=== PATIENT | male | born 1945 | race Caucasian/White ===

== ENCOUNTER 2024-03-12 09:50 | Outpatient (CLI) | payer OTHER, SELFPAY | END 2024-03-12 09:51 | disposition home or self-care (01) | PROVIDERS: PCP Family Medicine; Visit Provider Family Medicine | DX: D64.9 Anemia, unspecified (principal); I10 Essential (primary) hypertension; Z13.220 Encounter for screening for lipoid disorders; Z13.21 Encounter for screening for nutritional disorder; Z13.29 Encounter for screening for other suspected endocrine disorder | CPT/HCPCS: 80048; 80061; 82607; 84443 ==

== ENCOUNTER 2025-03-17 10:51 | Outpatient (CLI) | payer MEDICARE, SELFPAY | END 2025-03-17 10:52 | disposition home or self-care (01) | PROVIDERS: PCP Family Medicine; Visit Provider Family Medicine | DX: I10 Essential (primary) hypertension (principal); Z13.6 Encounter for screening for cardiovascular disorders | CPT/HCPCS: 80048; 80061 ==

== ENCOUNTER 2025-05-30 17:13 | Emergency (ER) | payer MEDICARE, SELFPAY ==
--- OUTSIDE RECORDS SUMMARY | 2025-05-08 08:52 | XMS_ITS | Encounter Summary ---
Author Organization [facility] Address [address] [place] [id number] Care Team Providers Care Remote Sensing Analyst Name Role Phone Elsewhere, Pcp Primary Care Provider Unavailabl e Encounter Details Date Type Department Care Team (Latest Contact Info) Description 05/08/2025 8:52 AM CDT - 05/08/2025 11:59 PM CDT Hospital Encounter Department of Laboratory Medicine and Pathology, [facility] in [place], [place] [address] [place] [phone] Yanci Domingo APRN, C.N.P., M.S.N. [address] [place] [phone] Atrial Fibrillation Other Persistent (HCC) Discharge Disposition: Home or Self Care Social History Tobacco Use Types Packs/Day Years Used Date Smoking Tobacco: Former Cigarettes Smokeless Tobacco: Never Alcohol Use Standard Drinks/Week Comments Yes 2 (1 standard drink = 0.6 oz pur e alcohol) [facility] Utilities Answer Date Recorded In the past 12 months has e electric, gas, oil, or water company threatened to shut off services in your home? No 05/04/2025 Humiliation, Afraid, Rape, and Kick questionnair e Answer Date Recorded Within the last year, have y ou been afraid of your partner or ex-partner? No 02/17/2023 Within the last year, have y ou been humiliated or emotionally abused in other ways by your partner or ex-partner? No Within the last year, have y ou been kicked, hit, slapped, or otherwise physically hurt by your partner or ex-partner? No 02/17/2023 Within the last year, have y ou been raped or forced to have any kind of sexual activity by your partner or ex-partner? No 02/17/2023 Hunger Vital Sign Answer Date Recorded Within the past 12 months, y ou worried that your food would run out before you got the money to buy more. Never true 05/04/20 25 Within the past 12 months, t he food you bought just didn't last and you didn't have money to get more. Never true 05/04/2025 PRAPARE - Transportation Answer Date Re corded In the past 12 months, has l ack of transportation kept you from medical appointments or from getting medications? No 06/2025 In the past 12 months, has l ack of transportation kept you from meetings, work, or from getting things needed for daily living? No 05/04/2025 Housing Stability Answer Date Recorded What is your living situation today? I have a [facility] place to live 05/04/2025 Education Answer Date Recorded What is the highest level of school you have completed or the highest degree you have received? 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 amoxicillin (AMOXIL) 500 mg capsule Take 2,000 mg by mouth as directed. Prior to Dental Work 03/10/2020 dofetilide (Tikosyn) 125 mcg capsule Take 1 capsule (125 mcg total) by mouth every 12 (twelve) hours. 180 capsule 1 05/08/2025 furosemide (Lasix) 20 mg tablet Take 20 mg by mouth every morning. 01/07/2025 losartan (COZAAR) 100 mg tablet Take 100 mg by mouth daily. 04/20/2021 metoprolol succinate (TOPROL-XL) 100 mg 24 hr tablet TAKE 2 TABLETS BY MOUTH DAILY. DO NOT CRUSH. 180 tablet 02/15/2024 multivitamin tablet Take 1 tablet by mouth daily. 09/15/2014 multivitamin/iron /folic acid (multivitamin-min erals) tablet Take 1 tablet by mouth daily. omeprazole (PriLOSEC) [address] capsule Take 20 mg by mouth every morning before breakfast. rosuvastatin (Crestor) 10 mg tablet Take 10 mg by mouth daily. warfarin (COUMADIN) 6 mg tablet Take 6mg daily until INR recheck on 12/08/22 12/05/2022 documented as of this encounter Plan of Treatment Not on file documented as of this encounter Procedures Procedure Name Priority Date/Time Associated Diagnosis Comments POTASSIUM, S/P Routine 05/08/2025 9:11 AM CDT Atrial Fibrillation Other Persistent (HCC) MAGNESIUM, S Routine 05/08/2025 9:11 AM CDT Atrial Fibrillation Other Persistent (HCC) CREATININE WITH EGFR, S/P Routine 05/08/2025 9:11 AM CDT Atrial Fibrillation Other Persistent (HCC) documented in this encounter Results * Creatinine with Estimated GFR (05/08/2025 9:11 AM CDT) Creatinine 1.23 0.74 - 1.35 mg/dL 05/08/2025 10:08 AM CDT DTL Estimated GFR (eGFR) 60 >=60 mL/min/BSA 05/08/2025 10:08 AM CDT DTL Comment: Estimated GFR calculated using the 2020 CKD_EPI creatinine equation. Blood (Blood, Venous) 05/08/2025 9:11 AM CDT 05/08/2025 9:51 AM CDT Yanci Domingo APRN, C.N.P., M.S.N. LAB BLOOD ADD -ON Final Result [facility] [place] [address] [place], [place] [address] 200 [place] [address] * Potassium (05/08/2025 9:11 AM CDT) Potassium, S 4.5 3.6 - 5.2 mmol/L 05/08/2025 10:08 AM CDT DTL Blood (Blood, Venous) 05/08/2025 9:11 AM CDT 05/08/2025 9:51 AM CDT Yanci Domingo APRN, C.N.P., M.S.N. LAB BLOOD ADD -ON Final Result [facility] [place] [address] [place], [place] [address] 200 [place] [address] * Magnesium (05/08/2025 9:11 AM CDT) Pathologist [facility] [place] Magnesium, S 2.1 1.7 - 2.3 mg/dL 05/08/2025 10:08 AM CDT DTL Blood (Blood, Venous) 05/08/2025 9:11 AM CDT 05/08/2025 9:51 AM CDT Yanci Domingo APRN, C.N.P., M.S.N. LAB BLOOD ADD -ON Final Result [facility] [place] [address] [place], [place] [address] 200 [place] [address] documented in this encounter Visit Diagnoses Diagnosis Atrial Fibrillation Other Persistent (HCC) documented in this encounter Care Teams Remote Sensing Analyst Relationship Specialty Start Date End Date Elsewhere, Pcp PCP - General Internal Medicine 11/15/21 documented as of this encounter
--- OUTSIDE RECORDS SUMMARY | 2025-05-08 10:00 | XMS_ITS | Encounter Summary ---
Author Organization [facility] Address [address] [place] [phone] Care Team Providers Care Corporate Quality Assurance Manager Name Role Phone Elsewhere, Pcp Primary Care Provider Unavailabl e Reason for Referral * Cardiovascular-Diagnostic (Routine) - Authorized Specialty Diagnoses / Procedures Referred By Contac t Referred To Contact Diagnoses Atrial Fibrillation Other Persistent (HCC) Procedures Echo Transthoracic (TTE) Yanci Domingo APRN C.N.P., M.S.N. 200 [place] [phone] Phone: tel: fax: [facility] Referral ID Status Reason Start Date Expiration Date V isits Requested Visits Authorized [id number] Authorized 05/08/2025 08/08/2026 1 1 * Outpatient (Routine) - Authorized Specialty Diagnoses / Procedures Referred By Contac t Referred To Contact Diagnoses Atrial Fibrillation Other Persistent (HCC) Procedures ECG 12 Lead NH EKG 12 LEAD W I&R Yanci Domingo APRN, C.N.P., M.S.N. [address] [place] [phone] Phone: tel: fax: [facility] Referral ID Status Reason Start Date Expiration Date V isits Requested Visits Authorized [id number] Authorized 05/08/2025 08/08/2026 1 1 * Outpatient (Routine) - Authorized Specialty Diagnoses / Procedures Referred By Zakia t Referred To Contact Cardiovascular Disease Yanci Domingo APRN, C.N.P., M.S.N. [address] [place] [phone] Phone: tel: fax: [facility] Referral ID Status Reason Start Date Expiration Date V isits Requested Visits Authorized [id number] Authorized 05/08/2025 11/07/2026 1 1 Scheduling Instructions Schedule in 3-4 months. All testing to be completed 1-7 days prior to clinic visit. THIS ORDER IS ONLY TO BE USED FOR ANTIARRHYTHMIC DRUG FOLLOW UP WITH ORDERING PROVIDER. Reason for Visit * Outpatient (Routine) - Closed Specialty Diagnoses / Procedures Referred By Zakia swenson Referred To Contact Cardiovascular Disease Yanci Domingo APRN, C.NWinter, M.S.N. [address] [place] [phone] Phone: tel: fax: [facility] Referral ID Status Reason Start Date Expiration Date Visits Re quested Visits Authorized [id number] Closed 01/30/2025 08/01/2026 1 1 Encounter Details Date Type Department Care Team (Latest Contact Info) Description 05/08/2025 10:00 AM CDT Office Visit Department of Cardiovascular Medicine in [place], [place] [address] [place] [phone] Yanci Doimngo APRN, C.NWinter, M.S.N. [address] [place] [phone] Atrial Fibrillation Other Persistent (HCC) (Primary Dx); Bicuspid Aortic Valve (HCC); Flutter Atrial (HCC); Hypertension Essential Primary; Intermediate (Current) Anticoagulant Treatment; Prosthesis Heart Valve; Hyperlipidemia; High Risk Medication Social History Tobacco Use Types Packs/Day Years Used Date Smoking Tobacco: Former Cigarettes Smokeless Tobacco: Never Alcohol Use Standard Drinks/Week Comments Yes 2 (1 standard drink = 0.6 oz pur e alcohol) [facility] Utilities Answer Date Recorded In the past 12 months has e [employer], gas, oil, or water [employer] threatened to shut off services in your [...] your living situation today? I have a [facility] place to live 05/04/2025 Education Answer Date Recorded What is the highest level of school you have completed or the highest degree you have received? 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 - 05/08/2025 10:00 AM CDT [facility] NOTE CHIEF COMPLAINT/REASON FOR CONSULT Atrial fibrillation, dofetilide monitoring HISTORY OF PRESENT ILLNESS Mr. Audie Cueva is a pleasant 79 y.o. male patient who presents to the [facility] for follow up on atrial fibrillation and dofetilide monitoring. The past medical history is significant for, but not limited to: Persistent atrial fibrillation -symptomatic -status post pulmonary vein isolation, roof line, mitral isthmus line, and CTI ablation with Dr. Parson in 2007 -status post redo pulmonary vein isolation, posterior wall ablation, and mitral isthmus line with Dr. Giraldo in 2020 -recurrence in 2021, initiated dofetilide in November of 2022 Bicuspid aortic valve status post mechanical aortic valve replacement, 2013 Right cerebellar infarct Central retinal artery occlusion Hypertension Left bundle-branch block Chronic heart failure with preserved ejection fraction (diagnosed elsewhere) Diverticulosis GI bleed after colonoscopy in 2018 Venous insufficiency Mr. Cueva is an established [facility] patient. Please see prior consultative notes for a detailed history. Briefly, atrial fibrillation was diagnosed in 2006. He is on warfarin for stroke prophylaxis, managed locally. He trialed rate control with digoxin and metoprolol, the latter wasoriginally prescribed/uptitrated for hypertension. He attempted rhythm control with amiodarone briefly but elected to discontinue the medication. He was cardioverted in 2007 and underwent ablation later that same year. By spring, symptoms were occurring every 3-4 hours. In 2020, a CT angiogram demonstrated a mechanical aortic valve with tiny anterior perivalvular leak. He had focal atherosclerotic plaque at the origin of the left main/proximal LAD with minimal stenosis and CAD-RADS of 1. He underwent repeat ablation as above in October 2021. The last TTE on 02/08/2022 showed mild LV and RV enlargement. LVEF was normal at 55%. He had mildly reduced RV systolic function, estimated RVSP of 34 mmHg. He had [id number] aortic valve periprosthetic regurgitation and trivial prosthetic regurgitation. The prosthetic systolic mean Doppler gradient was 18 mmHg. EVERARDO 12/05/2022 showed LVEF at 65% and mild anterior periprosthetic aortic valve prosthetic regurgitation (not well visualized). In late 2021, atrial fibrillation/flutter recurred associated with dyspnea on exertion, fatigue, dizziness, and sense of irregular rhythm. Holter rates averaged 98 and ranged 77-155 beats per minute. In November 2022, he was admitted and initiated on dofetilide 125 mcg twice daily then cardioverted to restore sinus rhythm. At baseline, the corrected QT was 456 milliseconds. He could not tolerate 250 mcg of dofetilide due to QT prolongation. At discharge, the corrected QT was 529 milliseconds (QRS 150 milliseconds). Since then, he is followed in our clinic for dofetilide surveillance with no known recurrence of atrial arrhythmia. At our last visit, we were concerned for mildly elevated creatinine, which has since resolved. Today, Mr. Cueva says he is doing well. He has not had any symptoms to suggest recurrent atrialfibrillation. Specifically, he denies palpitations; sudden weakness, lightheadedness, or dyspnea. He remains active around the home, can do strenuous activity such as mowing the lawn without chest pain, chest pressure, or dyspnea. He has mild orthostatic lightheadedness but no presyncope or syncope. He has chronic lower extremity edema and venous insufficiency for which he is following in our vein clinic. He initiated treatment for hyperlipidemia and is tolerating his statin therapy well. He remains on warfarin for stroke prophylaxis, has had some trouble with stabilizing the INRs and was recently subtherapeutic at 1.3. He is looking forward to a zip lining trip in May. The following portions of the patient's history were reviewed and updated as appropriate: allergies, current medications, family history, medical history, social history, surgical history, psychiatric history, substance abuse history, problem list, labs, diagnostics tests. I also reviewed pertinentclinical notes in the electronic health record. PAST MEDICAL/SURGICAL HISTORY See HPI. REVIEW OF SYSTEMS As per HPI, all other review of systems was negative. Current Medications: amLODIPine (Norvasc) 10 mg tablet, Take 1 tablet by mouth daily. amoxicillin (AMOXIL) 500 mg capsule, Take 2,000 mg by mouth as directed. Prior to Dental Work dofetilide (Tikosyn) 125 mcg capsule, Take 1 capsule (125 mcg total) by mouth every 12 (twelve) hours. furosemide (Lasix) 20 mg tablet, Take 20 mg by mouth every morning. losartan (COZAAR) 100 mg tablet, Take 100 mg by mouth daily. metoprolol succinate (TOPROL-XL) 100 mg 24 hr tablet, TAKE 2 TABLETS BY MOUTH DAILY. DO NOT CRUSH. multivitamin tablet, Take 1 tablet by mouth daily. multivitamin/iron/folic acid (multivitamin-minerals) tablet, Take 1 tablet by mouth daily. omeprazole (PriLOSEC) [address] capsule, Take 20 mg by mouth every morning before breakfast. rosuvastatin (Crestor) 10 mg tablet, Take 10 mg by mouth daily. warfarin (COUMADIN) 6 mg tablet, Take 6mg daily until INR recheck on 12/08/22 Allergies Allergen Reactions Lisinopril Cough SOCIAL HISTORY . Reports that he has quit smoking. His smoking use included cigarettes. He has never used smokeless tobacco. He reports current alcohol use of about 2.0 standard drinks of alcohol per week. He reports that he does not use drugs. FAMILY HISTORY Family history is not on file. OBJECTIVE Vitals: 05/08/25 0959 BP: 129/78 Pulse: 68 BP Readings from Last 3 Encounters: 05/08/25 129/78 01/30/25 115/69 10/01/24 155/74 PHYSICAL EXAMINATION General: Well groomed, in no acute distress. Skin: Warm and dry. Heart: Regular rhythm, regular rate. S1, prosthetic S2. Grade 2/6 systolic murmur loudest at the left sternal border. No click, gallop, or rub No significant murmur, click, gallop, or rub. Lungs: Clear to auscultation bilaterally. Breathing is unlabored. Extremities: Trace bilateral lower extremity edema. Neuro: Alert and oriented to person, place and time. Psych: Appropriate mood and affect. DIAGNOSTICS All pertinent completed labs and diagnostic studies were reviewed. ECG 12 Lead Result Date: 05/08/2025 Sinus rhythm with 1st degree A-V block Left bundle branch block with secondary ST-T abnormalities When compared with ECG of 30-Jan-2025 08:52, NH interval has increased Premature atrial complexes are no longer present Reviewed by JERRY Cronin The ventricular rate is 67 beats per minute. NH interval trend and 46 milliseconds. The manually corrected QT is 469 milliseconds (accounting for left bundle-branch block). Recent Results (from the past 72 hours) Magnesium Collection Time: 05/08/25 9:11 AM Result Value Magnesium, S 2.1 Potassium Collection Time: 05/08/25 9:11 AM Result Value Potassium, S 4.5 Creatinine with Estimated GFR Collection Time: 05/08/25 9:11 AM Result Value Creatinine 1.23 Estimated GFR (eGFR) 60 ASSESSMENT / PLAN History of persistent atrial fibrillation -symptomatic -status post pulmonary vein isolation, roof line, mitral isthmus line, and CTI ablation with Dr. Parson in 2007 -status post redo pulmonary vein isolation, posterior wall ablation, and mitral isthmus line with Dr. Giraldo in 2020 -recurrence in 2021, initiated dofetilide in November of 2022 Left bundle-branch block Bicuspid aortic valve -status post mechanical aortic valve replacement in 2013 Chronic oral anticoagulation on warfarin, INR goal 2.5-3.5 -recently subtherapeutic History of right cerebellar infarct History of central retinal artery occlusion Hypertension History of GI bleed after colonoscopy in 2018 It was a pleasure to meet with Mr. Cueva in the [facility] today. He is maintaining sinus rhythm without significant bradycardia on the current, well tolerated dose of dofetilide 125 mcg every 12 hours, which was initiated in November 2022. He is satisfied with the current therapy and elects to continue. The current QT, electrolytes, and renal function are acceptable for continuing this dose. We discussed that if he has recurrence, he may be a candidate for cardioversion, then repeat catheter ablation (discussed PFA) versus alternative antiarrhythmic therapy. To reduce the risk of combining QT prolonging drugs, He was reminded to discuss any new medicationsto include [id number]-vjrosug medications and supplements with the prescriber and/or his pharmacist. he was also advised to seek care soon for any significant loss of appetite, vomiting, or diarrhea soserum electrolytes can be assessed/replaced as needed. His [id number] score is 6 with an annual estimated stroke risk related to atrial fibrillation of 9.7%. In the absence of recurrent bleeding complications, he will continue stroke prophylaxis with warfarin (goal INR 2.5-3.5), which is being monitored by his local team. Given the recently subtherapeutic INR, we discuss the need to seek emergency care for any stroke symptoms. In regard to his prosthetic aortic valve, he met with Dr. Hilton in 2020 and then the periprostheticleak was [id number]-[id number] (mild at discharge after surgery). Per MISHEL, after initial follow-up, routine annual echocardiography is not indicated in the absence of a change in clinical status. He is feeling. His murmur is a bit louder today so we will plan to repeat his TTE at the next visit. All of Mr. Cueva's questions have been answered. He verbalized understanding of the plan and recommendations. He agrees to continued monitoring in the [facility], see details below. Summary of Recommendations Continue dofetilide 125 mcg twice daily. Continue stroke prophylaxis with warfarin (INR goal 2.5-3.5). Return visit 4 months with ECG, labs, TTE Contact our team for mild symptoms of atrial fibrillation >24-48 hours. Call 911 for severe symptoms. Review any new medications with prescriber/pharmacist prior to taking. Seek care early for any vomiting, diarrhea, significant loss of appetite. Yanci Domingo APRN, C.NChristinaP., M.S.N. 05/08/2025 CC: Dr. Giraldo documented in this encounter Plan of Treatment Scheduled Orders Name Type Priority Associated Diagnoses Orde r Schedule ECG 12 Lead ECG Routine Atrial Fibrillation Other Persistent (HCC) Expected: 09/09/2025, Expires: 08/08/2026 Magnesium Lab Routine Atrial Fibrillation Other Persistent (HCC) Expected: 09/09/2025, Expires: 08/08/2026 Potassium Lab Routine Atrial Fibrillation Other Persistent (HCC) Expected: 09/09/2025, Expires: 08/08/2026 Creatinine with Estimated GFR Lab Routine Atrial Fibrillation Other Persistent (HCC) Expected: 09/09/2025, Expires: 08/08/2026 Echo Transthoracic (TTE) Echocardiography Routine Atrial Fibrillation Other Persistent (HCC) Expected: 09/09/2025, Expires: 08/08/2026 Scheduled Referrals Name Type Priority Associated Diagnoses Order Schedule Cardiovascular Disease office visit (clinic) [place]; [facility]; [facility] Outpatient Referral Routine Expected: 09/09/2025 (Approximate), Expires: 08/08/2026 documented as of this encounter Visit Diagnoses Diagnosis Atrial Fibrillation Other Persistent (HCC)- Primary Bicuspid Aortic Valve (HCC) Flutter Atrial (HCC) Hypertension Essential 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
--- OUTSIDE RECORDS SUMMARY | 2025-05-30 17:14 | XMS_ITS | Continuity of Care Document ---
Author Organization [place] [facility] [place] Address [address] [place] [address] Assessment Encounter Date Assessment Date Assessment LastModified by Organization Details LastModified Time 05/01/2025 05/01/2025 Time spent reviewing the patient s medical record, diagnostic studies, performing a focused history and physical exam, educating the patient regarding the natural history of disease as it pertains to the patient, discussing treatment options and alternatives, medical decision making, and chartin-39 minutes. [email or web address] Not available 05/01/2025 14:19:41 Plan of Treatment Reminders Order Date Submit Date Provider Last Modified By Organization Details Last Modified Time Details Appointments Medical Sclero 20 Min-MD 2024 12:10P [facility] Not available Not available Not available Lab None recorde d. Referral None recorde d. Procedures None recorde d. Surgeries None recorde d. Imaging None recorde d. Medication Orders None recorde d. Patient TargetsNo targets recorded. Patient Instructions Encounter Date Encounter Id Patient Instructions Last Modified By Organization Details Last Modified Time 05/01/2025 [id number] PROCEDURE RECOMMENDATIONS 1. Ultrasound guided foam sclerotherapy of the residual incompetent tributaries and varicosities greater than 4.0mm of the left leg (73508, 82769) 2 sessions 2. Ultrasound guided foam sclerotherapy of the residual incompetent tributaries and varicosities greater than 4.0mm of the right leg (22899, 34744) 2 sessions [email or web address] Not available 05/04/2025 12:49:53 Reason for Referral None Reported. Procedures Surgical History Date Name Laterality Status Provider Name and Address Organization Details Recorded Time 05/20/20 25 PVC - Ultrasound Guided Sclerotherapy completed Delores Montez [place] [facility] 05/20/2025 12:58:28 05/19/20 25 PVC - Ultrasound Guided Sclerotherapy completed Delores Montez [place] [facility] 05/19/2025 14:03:56 03/20/20 25 PVC - Varithena: Multiple Veins w/ UGFS completed Delores Montez [place] [facility] 03/20/2025 13:29:54 03/19/20 PVC - Varithena: Multiple Veins w/ UGFS completed Teresa Rice MD [address], [place], [address], [place] [facility] 03/19/2025 15:41:15 02/06/20 25 PVC - EVRFA: Two Veins completed Nereyda Rhoades MD [address], [place], [address], [place] [facility] 02/05/2025 14:01:32 02/06/20 25 procedure on vein completed BREANNE GUTIERREZ [address], [place], [address], [place] [facility] 05/01/2025 14:14:41 12/31/19 25 PVC - EVRFA: Two Veins completed Delores Montez [place] [facility] 12/31/2024 14:25:17 12/30/19 25 PVC - EVRFA: Single Vein completed Delores Montez [place] [facility] 12/30/2024 13:08:45 Colonoscopy completed Teresa Rice MD [address], [place], [address], [place] [facility] 09/19/2024 13:47:28 Hernia Repair completed Teresa Rice MD [address], [place], [address], [place] [facility] 09/19/2024 13:47:28 Vasectomy completed Teresa Rice MD [address], [place], [address], [place] [facility] 09/19/2024 13:47:28 Imaging Results None recorded. Procedure Notes None recorded. Medical Equipment None Reported. Allergies No known drug allergies Medications Name Sig Start Date Stop Date Status Note LastModified by Organization Details LastModified Time amoxicillin 500 mg capsule TAKE 4 CAPSULES BY MOUTH 1 HOUR PRIOR TO DENTAL APPOINTME NT. active Not Available Not Available No t Available prednisone 10 mg tablet TAKE 2 TABLETS BY MOUTH DAILY FOR 4 DAYS THEN TAKE 1 TABLET DAILY FOR 4 DAYS 09/19 completed Not Available Not Available Not Available metoprolol succinate ER 100 mg tablet,exte nded release 24 hr TAKE 1 TABLET BY MOUTH TWICE DAILY active Not Available Not Available No t Available warfarin 2.5 mg tablet active Not Available Not Available Not Available amlodipine 5 mg tablet TAKE 1 TABLET BY MOUTH EVERY DAY active Not Available Not Available No t Available warfarin 6 mg tablet active Not Available Not Available No t Available amlodipine 10 mg tablet TAKE 1 TABLET BY MOUTH EVERY DAY active Not Available Not Available No t Available warfarin 5 mg tablet TAKE 1 TABLET BY MOUTH EVERY DAY active Not Available Not Available No t Available furosemide 20 mg tablet TAKE 1 TABLET BY MOUTH EVERY MORNING active Not Available Not Available No t Available losartan 100 mg tablet TAKE 1 TABLET BY MOUTH DAILY active Not Available Not Available No t Available rosuvastati n 10 mg tablet TAKE 1 TABLET BY MOUTH EVERY DAY active Not Available Not Available No t Available Vitals Date Recorded Body height Body mass index (BMI) Body weight Provider Name and Address Organization Details Last Updated DateTime 05/01/2025 180.34 cm 33.5 kg/m2 578845.17 g BREANNE GUTIERREZ [address] [place], [address], [place] [facility] 05/01/2025 14:12:50 Social History Question Answer Notes LastModified by Organizat ion Details LastModified Time Tobacco Smoking Status Former Smoker Teresa Rice MD [address] [place], [address], [facility] 09/19/2024 13:47:41 How Many Times Per Week Do You Exercise? 3-4 Times Per Week Information not available 09/19/2024 How Much Tobacco Do You Smoke? No Information not available 09/19/2024 Sex: Unknown Functional Status Question Answer Note LastModified by Organizat ion Details LastModified Time How many times per week do you consume alcohol? 3-4 times per week Information not available 09/19/2024 What is your level of alcohol consumption? Occasional Information not available 09/19/2024 Are you currently employed? No Information not available 09/19/2024 What is your occupation? Retired Information not available 09/19/2024 What is your exercise level? Occasional Information not available 09/19/2024 Mental Status None recorded. Family History Relationship Description Onset Age of this Age Resolved Age Notes LastModified by Organization Details LastModified Time Unspecified Relation Family history unknown Not available 2023 13:47:52 Medical History Condition Response Varicose Veins Y Hyperlipidemia N Heart Disease N Hypertension Y Past Encounters Encounter ID Performer Location Encounter Start Date Encounter Closed Date Diagnosis/Indication Diagnosis SNOMED-CT Code Diagnosis ICD10 Code Diagnosis Note [id number] BREANNE GUTIERREZvichristy e [address] [place] [address] 05/01/2025 13:47:28 05/06/2025 13:43:43 Pain co-occurrent and due to varicose veins of bilateral legs [id number] I83.813 DUPLEX ULTRASOUND FINDINGS: Spectral doppler analysis shows abnormal reflux (>500msec) in multiple bilateral tributary veins. The left GSV, and SSV mid calf are absent c/w recent treatment. The Right GSV, ASV, and SSV mid calf are absent c/w recent treatment. The deep veins are patent with normal compressib ility and augmentati on. The deep venous insufficie ncy is absent. There is adequate venous capacity of the deep system. [id number] BREANNE GUTIERREZ [place] [address] [place] [address] 05/01/2025 13:47:41 05/06/2025 13:43:50 Pain co-occurrent and due to varicose veins of bilateral legs [id number] I83.813 DUPLEX ULTRASOUND FINDINGS: Spectral doppler analysis shows abnormal reflux (>500msec) in multiple bilateral tributary veins. The left GSV, and SSV mid calf are absent c/w recent treatment. The Right GSV, ASV, and SSV mid calf are absent c/w recent treatment. The deep veins are patent with normal compressib ility and augmentati on. The deep venous insufficie ncy is absent. There is adequate venous capacity of the deep system. 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 CEAP 4b VCSS 19 2)Right lower extremity superficia l chronic venous insufficie ncy of the tributary veins with pain and inflammati on affecting activities of daily living. CEAP 4c VCSS 193) Normal deep venous system without DVT4) The patient has progressio n of symptoms despite treatment of the bilateral GSV, Left PAGSVE, Left SSV, and Right ASV and conservati ve measures including use of GCS class II or higher for more than 6 weeks. avoiding long periods of sitting/st anding, regular daily exercise including moderate walking, weight control, OTC analgesics and leg elevation PLAN:1) Proceed with the treatment plan detailed below. Health Concerns Section Related Observation LastModified by Organization Detai ls LastModified Time None Recorded Concern Status LastModified by Organization Details LastModified Time None Recorded Payers Encounter Date Sequence Insurance Name Policy Number Policy Phan Covered Member ID Pahn Member ID Guarantor Name 05/01/2025 1 ARE - DOS ON OR AFTER 19 (MEDICARE REPLACEMENT/ ADVANTAGE - HMO) [id number] Audie Cueva [id number] Audie Cueva Notes Date Note Type Note Provider Name and Address Organization Details Recorded Time 05/01/2025 text/html The patient is a 79yo male who presents with complaints of Bilateral lower extremity varicose veins and increasing symptoms for the past more than 1 year. The patient is status post successful endovenous radiofrequency ablation of the bilateral great saphenous veins, Left PAGSVE, Left SSV, and Right ASV. The patient continues to have the following symptoms. Symptoms include: pain, aching, cramping, tired legs, fatigue, itching, burning, recurring swelling, spider veins, surface veins, difficulty healing wounds, rash, and skin discoloration. There is no history of DVT, SVT, ulceration, cellulitis or phleborrhagia. Symptom location: Bilateral, ankle/leg/thigh, right greater than leftSymptom severity:8/10; severeSymptoms occur with: prolonged sitting and standing, sleeping, during activity/exercise, after activity/exercise, and are worse later in the day. ADLs affected by symptoms:-Sleep: interfere with patient's ability to fall asleep and cause patient to awaken from sleep frequently.-Exercise /activity: limit ability to exercise, including walking.-Chores: Avoids chores or needs to take breaks to walk and/or elevate legs.-Leisure activities: Avoids activities or needs to take breaks to walk and/or elevate. Conservative measures implemented without relief of symptoms:-avoidance of prolonged periods of sitting or standing,-regular exercise including moderate daily walking,-leg elevation,-weight control,-GCS 20-30 mmHg more than 6 wks Rx provided at consultation-OTC analgesics:Tylenol dirk Rice MD [address], [place], [address], [place] [facility] 05/05/2025 08:58:45
--- OUTSIDE RECORDS SUMMARY | 2025-05-30 17:14 | XMS_ITS | Continuity of Care Document ---
Author Organization [facility] [place] Address [address] [place] [address] Assessment No assessment recorded. Plan of Treatment Reminders Order Date Submit Date Provider Last Modified By Organization Details Last Modified Time Details Appointments Medical Sclero 20 Min- 2024 12:10P M [facility] Not available Not available Not available Lab None recorde d. Referral None recorde d. Procedures None recorde d. Surgeries None recorde d. Imaging None recorde d. Medication Orders None recorde d. Patient TargetsNo targets recorded. Patient InstructionsNo instructions recorded. Reason for Referral None Reported. Procedures Surgical History Date Name Laterality Status Provider Name and Address Organization Details Recorded Time 05/20/20 25 PVC - Ultrasound Guided Sclerotherapy completed Delores [facility] 05/20/2025 12:58:28 05/19/20 25 PVC - Ultrasound Guided Sclerotherapy completed Delores [facility] 05/19/2025 14:03:56 03/20/20 25 PVC - Varithena: Multiple Veins w/ UGFS completed Delores [facility] 03/20/2025 13:29:54 03/19/20 25 PVC - Varithena: Multiple Veins w/ UGFS completed Teresa Rice MD [address] [place], [address], [facility] 03/19/2025 15:41:15 02/06/20 25 PVC - EVRFA: Two Veins completed Nereyda Rhoades MD [address] [place], [address], [place] [facility] 02/05/2025 14:01:32 02/06/20 25 procedure on vein completed BREANNE GUTIERREZ [address], [place], [address], [place] [facility] 05/01/2025 14:14:41 12/31/19 25 PVC - EVRFA: Two Veins completed Delores Montez [place] [facility] 12/31/2024 14:25:17 12/30/19 25 PVC - EVRFA: Single Vein completed Delores [facility] 12/30/2024 13:08:45 Colonoscopy completed Teresa Rice MD [address], [place], [address], [place] [facility] 09/19/2024 13:47:28 Hernia Repair completed Teresa Rice MD [address], [place], [address], [place] [facility] 09/19/2024 13:47:28 Vasectomy completed Teresa Rice MD [address], [place], [address], [place] [facility] 09/19/2024 13:47:28 [...] Available Not Available No t Available Vitals None Recorded Social History Question Answer Notes LastModified by Organizat ion Details LastModified Time Tobacco Smoking Status Former Smoker Teresa Rice MD [address] [place], [address], [facility] 09/19/2024 13:47:41 How Many [...] SNOMED-CT Code Diagnosis ICD10 Code Diagnosis Note [id number] BREANNE GUTIERREZ e [address] [place] [address] 05/01/2025 13:47:28 05/06/2025 13:43:43 Pain co-occurrent and due to varicose veins of bilateral legs [id number] I83.813 DUPLEX ULTRASOUND FINDINGS: Spectral doppler analysis [...] adequate venous capacity of the deep system. [id number] BREANNE GUTIERREZvichristy e [address] [place] [address] 05/01/2025 13:47:41 05/06/2025 13:43:50 Pain co-occurrent and due to varicose veins of bilateral legs [id number] I83.813 DUPLEX ULTRASOUND FINDINGS: Spectral doppler analysis [...] Proceed with the treatment plan detailed below. [id number] MD Dyllan Wilson e [address] [place], [place] [address] 05/19/2025 13:43:03 05/19/2025 15:27:43 Pain co-occurrent and due to varicose veins of left leg [id number] I83.812 [id number] MD Dyllan Wilson [address] [place] [address] 05/20/2025 12:39:09 05/20/2025 14:20:10 Pain co-occurrent and due to varicose veins of right leg [id number] I83.811 Health Concerns Section Related Observation LastModified by Organization Detai ls LastModified Time None Recorded Concern Status LastModified by Organization Details LastModified Time None Recorded Payers Encounter Date Sequence Insurance Name Policy Number Policy Phan Covered Member ID Phan Member ID Guarantor Name 05/20/2025 1 UCARE - DOS ON OR AFTER 19 (MEDICARE REPLACEMENT/ ADVANTAGE - HMO) [id number] 1 Audie Cueva [id number] Audie Cueva
--- OUTSIDE RECORDS SUMMARY | 2025-05-30 17:15 | XMS_ITS | Encounter Summary ---
Author Organization [facility] Address [address] [place] [address] Care Team Providers Care Draw Off Worker Name Role Phone Elsewhere, Pcp Primary Care Provider Unavailabl e Reason for Visit * Reason Onset Date Comments Med Refill 03/31/2025 Encounter Details Date Type Department Care Team (Late st Contact Info) Description 03/31/2025 Refill Department of Cardiovascular Medicine in [place], [place] [address] [place] [phone] Yanci Domingo APRN, C.N.P., M.S.N. [address] [place] [phone] Med Refill Social History Tobacco Use Types Packs/Day Years Used Date Smoking Tobacco: Former Cigarettes Smokeless Tobacco: Never Alcohol Use Standard Drinks/Week Comments Yes 2 (1 standard drink = 0.6 oz pur e alcohol) [facility] Utilities Answer Date Recorded In the past 12 months has health system [email or web address], gas, oil, or water [employer] threatened to shut off services in your home? No 03/25/2024 Humiliation, Afraid, Rape, and Kick questionnair e [...] the money to buy more. Never true 03/25/20 24 Within the past 12 months, t he food you bought just didn't last and you didn't have money to get more. Never true 03/25/2024 PRAPARE - Transportation Answer Date Re corded In the past 12 months, has l ack of transportation kept you from medical appointments or from getting medications? No 02/26 In the past 12 months, has l ack of transportation kept you from meetings, work, or from getting things needed for daily living? No 03/25/2024 Housing Stability Answer Date Recorded What is your living situation today? I have a [facility] place to live 03/25/2024 Education Answer Date Recorded What is the highest level of school you have completed or the highest degree you have received? 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
--- OUTSIDE RECORDS SUMMARY | 2025-05-30 17:15 | XMS_ITS | Encounter Summary ---
Author Organization [facility] Address [address] [place] [address] Care Team Providers Care Bilingual Social Worker Name Role Phone Elsewhere, Pcp Primary Care Provider Unavailabl e Encounter Details Date Type Department Care Team (Late st Contact Info) Description 04/03/2025 Orders Only Department of Cardiovascular Medicine in [place], [place] [address] [place] [phone] Yanci Domingo APRN, C.N.P., M.S.N. [address] [place] [phone] Social History Tobacco Use Types Packs/Day Years Used Date Smoking Tobacco: Former Cigarettes Smokeless Tobacco: Never Alcohol Use Standard Drinks/Week Comments Yes 2 (1 standard drink = 0.6 oz pur e alcohol) [facility] Utilities Answer Date Recorded In the past 12 months has [facility] [employer], [employer], oil, or water [employer] threatened to shut off services in your [...] your living situation today? I have a [facility] place to live 03/25/2024 Education Answer Date Recorded What is the highest level of school you have completed or the highest degree you have received? 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
--- OUTSIDE RECORDS SUMMARY | 2025-05-30 17:15 | XMS_ITS | Continuity of Care Document ---
Author Organization [facility] [place] Address [address] [place] [address] Assessment No assessment recorded. Plan of Treatment [...] PVC - Ultrasound Guided Sclerotherapy completed Delores [facility] 05/20/2025 12:58:28 05/19/20 25 PVC - Ultrasound Guided Sclerotherapy completed Delores [facility] 05/19/2025 14:03:56 03/20/20 25 PVC - Varithena: Multiple Veins w/ UGFS completed Delores [facility] 03/20/2025 13:29:54 03/19/20 25 PVC - Varithena: Multiple Veins w/ UGFS completed Teresa Rice MD [address] [place], [address], [facility] 03/19/2025 15:41:15 02/06/20 25 PVC - EVRFA: Two Veins completed Nereyda Rhoades MD [address] [place], [address], [place] [facility] 02/05/2025 14:01:32 02/06/20 25 procedure on vein completed BREANNE GUTIERREZ [address], [place], [address], [place] [facility] 05/01/2025 14:14:41 12/31/19 25 PVC - EVRFA: Two Veins completed Delores Montez [place] - [facility] 12/31/2024 14:25:17 12/30/19 25 PVC - EVRFA: Single Vein completed Delores [facility] 12/30/2024 13:08:45 Colonoscopy completed Teresa Rice MD [address], [place], [address], [place] [facility] 09/19/2024 13:47:28 Hernia Repair completed Teresa Rice MD [address], [place], [address], [place] [facility] 09/19/2024 13:47:28 Vasectomy completed Teresa Rice MD [address], [place], [address], [place] [facility] 09/19/2024 13:47:28 [...] Updated DateTime 05/01/2025 180.34 cm 33.5 kg/m2 935319.17 g BREANNE GUTIERREZ [address], [email or web address], [address], [place] - [facility] 05/01/2025 14:12:50 Social History Question Answer Notes LastModified by Organizat ion Details LastModified Time Tobacco Smoking Status Former Smoker Teresa Rice MD [address], [email or web address], [address], [facility] 09/19/2024 13:47:41 How [...] SNOMED-CT Code Diagnosis ICD10 Code Diagnosis Note [id number] BREANNE GUTIERREZ e [address] [place] [address] 05/01/2025 13:47:28 05/06/2025 13:43:43 Pain co-occurrent and due to varicose veins of bilateral legs [id number] I83.813 DUPLEX ULTRASOUND FINDINGS: Spectral doppler analysis [...] adequate venous capacity of the deep system. [id number] BREANNE GUTIERREZ [place] [address] [place] [address] 05/01/2025 13:47:41 05/06/2025 13:43:50 Pain co-occurrent and due to varicose veins of bilateral legs [id number] I83.813 DUPLEX ULTRASOUND FINDINGS: Spectral doppler analysis [...] Member ID Phan Member ID Guarantor Name 05/01/2025 1 [employer] - DOS ON OR AFTER 19 (MEDICARE REPLACEMENT/ ADVANTAGE - HMO) [id number] Audie Cueva [id number] Audie Cueva Notes Date Note Type Note [...] provided at consultation-OTC analgesics:Tylenol dirk Rice MD [address], [place], [place], [address], [place] [facility] 05/05/2025 08:58:45
--- OUTSIDE RECORDS SUMMARY | 2025-05-30 17:15 | XMS_ITS | Clinical Summary ---
Author Organization [facility] Address [address] [place] [address] Care Team Providers Care Pharmaceutical Sales Representative Name Role Phone Elsewhere, Pcp Primary Care Provider Unavailabl e Source Comments Patient records contain information from all sites at [facility]. For routine questions regarding patient records, call [phone] during business hours, M-F 8:00 AM - 5:00 PM Central Time. Record requests for emergency care only can be directed to [phone] at any time.[facility] Allergies Active Allergy Reactions Criticality Noted Date Comments Lisinopril Cough 11/11/2022 Medications amoxicillin (AMOXIL) 500 mg capsule Take 2,000 mg by mouth as directed. Prior to Dental Work 0 Active losartan (COZAAR) 100 mg tablet Take 100 mg by mouth daily. 1 Active multivitamin tablet Take 1 tablet by mouth daily. 4 Active warfarin (COUMADIN) 6 mg tablet Take 6mg daily until INR recheck on 12/08/22 3 Active metoprolol succinate (TOPROL-XL) 100 mg 24 hr tablet TAKE 2 TABLETS BY MOUTH DAILY. DO NOT CRUSH. 180 tablet 4 Active omeprazole (PriLOSEC) [address] capsule Take 20 mg by mouth every morning before breakfast. Active multivitamin/ir on/folic acid (multivitamin-m inerals) tablet Take 1 tablet by mouth daily. Active amLODIPine (Norvasc) 10 mg tablet Take 1 tablet by mouth daily. Active furosemide (Lasix) 20 mg tablet Take 20 mg by mouth every morning. 5 Active rosuvastatin (Crestor) 10 mg tablet Take 10 mg by mouth daily. Active dofetilide (Tikosyn) 125 mcg capsule Take 1 capsule (125 mcg total) by mouth every 12 (twelve) hours. 180 capsule 1 5 Active dofetilide (Tikosyn) 125 mcg capsule Take 1 capsule (125 mcg total) by mouth every 12 (twelve) hours. 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 Garcia, temporary atrial fibrillation postop converted spontaneously on amiodarone. Vertigo 11/02/2014 Bicuspid Aortic Valve 09/15/2014 Atrial Fibrillation Paroxysmal 09/15/2014 Overview (11/17/2021): Status post catheter ablation 11/17/[address] Giraldo Snoring 09/15/2014 Flutter Atrial 01/04/2008 Encounters Date Type Department Care Team Description 05/08/2025 10:00 AM CDT Office Visit Department of Cardiovascular Medicine in [place], [place] [address] [place] [address] Yanci Domingo APRN, C.N.P., M.S.N. Atrial Fibrillation Other Persistent (HCC) (Primary Dx); Bicuspid Aortic Valve (HCC); Flutter Atrial (HCC); Hypertension Essential Primary; Group Home (Current) Anticoagulant Treatment; Prosthesis Heart Valve; Hyperlipidemia; High Risk Medication 05/08/2025 8:52 AM CDT - 05/08/2025 11:59 PM CDT Hospital Encounter Department of Laboratory Medicine and Pathology, [facility], in [place], [place] [address] [place] [address] Yanci Domingo APRN, C.NWinter, M.S.N. Atrial Fibrillation Other Persistent (HCC) Discharge Disposition: Home or Self Care 04/03/2025 Orders Only Department of Cardiovascular Medicine in [place], [place] [address] [place] [address] Yanci Domingo APRN, C.NWinter, M.S.N. 03/31/2025 Orders Only Department of Cardiovascular Medicine in [place], [place] [address] [place] [address] Yanci Domingo APRN, C.N.Ruel, M.S.N. 03/31/2025 Refill Department of Cardiovascular Medicine in [place], [place] [address] [place] [address] Yanci Domingo APRN, C.NKana., M.S.N. Med Refill from Last 3 Months Immunizations Immunization Administration Dates Next Due Influenza Split 08/27/2014,09/27/2007 PPSV23 11/27/2012 Tdap 12/28/2006 Social History Tobacco Use Types Packs/Day Years Used Date Smoking Tobacco: Former Cigarettes Smokeless Tobacco: Never Tobacco Cessation:Counseling Given: Not Answered Alcohol Use Standard Drinks/Week Comments Yes 2 (1 standard drink = 0.6 oz pur e alcohol) [facility] Utilities Answer Date Recorded In the past [address] [facility], [employer], oil, or water [employer] threatened to shut off services in your [...] your living situation today? I have a [facility] place to live 05/04/2025 Education Answer Date Recorded What is the highest level of school you have completed or the highest degree you have received? 12th grade 08/29/2021 Sex and Gender Information Value Date Recorded Sex Assigned at Male 08/10/2021 2:06 PM CDT Legal Sex Male 10:58 AM GATE MANAGER Gender Identity Male 08/10/2021 2:06 PM CDT Sexual Orientation Straight 08/10/2021 2: 06 PM CDT Last Filed Vital Signs Vital Sign Reading Time Taken Comments Blood Pressure 129/78 05/08/2025 9:59 AM CDT Pulse 68 05/08/2025 9:59 AM CDT Temperature 36.6 C (97.9 F) 12/05/2022 11:15 AM GATE MANAGER Respiratory Rate 17 12/05/2022 11:15 AM GATE MANAGER Oxygen Saturation 97% 12/05/2022 11:15 AM GATE MANAGER Inhaled Oxygen Concentration - - Weight 108 kg (238 lb 13.9 oz) 05/08/2025 9:59 A M CDT Height 177.7 cm (5' 9.96) 05/08/2025 9:59 AM CD T Body Mass Index 34.31 05/08/2025 9:59 AM CDT Plan of Treatment Health Maintenance Due Date Last Done Comments Hepatitis C Screening 1945 RSV vaccine - (32-36 weeks) or 60+ years (1 - 1-dose 75+ series) 2020 Depression Screening (Annual PHQ-2) 11/27/2024 COVID-19 Vaccine ( season) 2025 09/05/2024, 09/19/2023, 09/22/2022, Additional history exists Sodium Level 03/26/2025 03/26/2024, /06/2023, 12/08/2022, Additional history exists Influenza Vaccine (#1) 2025 , 09/19/2023, 08/08/2022, Additional history exists Creatinine Level (Kidney Function Test) 05/08/2026 05/08/2025, 01/30/2025, 10/01/2024, Additional history exists Office Visit for Blood Pressure Check / Re-check 05/08/2026 05/08/2025 Potassium Level 05/08/2026 05/08/2025, 03/0 04/2025, 10/01/2024, Additional history exists DTaP,Tdap,and Td Vaccines (3 - Td or Tdap) 05/13/2029 05/13/2019, 12/28/2006 Pneumococcal vaccine (50+ years) Completed 09/21/2016, 11/27/2012, 11/01/2011 Zoster Vaccines Completed 03/16/2021, 10/27, 02/02/2010 Fall Risk Screen (Annual) Completed 05/08/2025 IPV Vaccines Aged Out No longer eligi ble based on patient's age to complete this topic Medical Devices Implanted Type Area Compound Coating Machine Offbearer Device Identifier Shelf Expiration Date Model / Serial / Lot Valve Aortic Top Hat [id number] [facility] [id number] Implanted:Qty: 1 on 10/28/2014 Cardiac Valve Prosthesis Aorta [employer] Description:Device Manufactu [employer] [place] - [employer]. Body Location - Other. Aortic. Device Status Text - [id number]. Procedures Procedure Name Priority Date/Time Associated Diagnosis Comments CREATININE WITH EGFR, S/P Routine 05/08/2025 9:11 AM CDT Atrial Fibrillation Other Persistent (HCC) POTASSIUM, S/P Routine 05/08/2025 9:11 AM CDT Atrial Fibrillation Other Persistent (HCC) MAGNESIUM, S Routine 05/08/2025 9:11 AM CDT Atrial Fibrillation Other Persistent (HCC) ECG Routine 05/08/2025 8:45 AM CDT Atrial Fibrillation Other Persistent (HCC) BASIC METABOLIC PANEL, S/P Routine 03/26/2024 11:52 AM CDT Atrial Fibrillation Paroxysmal (HCC) from Last 3 Months or Most Recently Relevant to Health Maintenance Results * Potassium (05/08/2025 9:11 AM CDT) Potassium, S 4.5 3.6 - 5.2 mmol/L 05/08/2025 10:08 AM CDT DTL Blood (Blood, Venous) 05/08/2025 9:11 AM CDT 05/08/2025 9:51 AM CDT Yanci Domingo APRN, Jovon.N.P., M.S.N. LAB BLOOD ADD -ON Final Result [facility] [address] [place] [address], [place] [address] * Magnesium (05/08/2025 9:11 AM CDT) Magnesium, S 2.1 1.7 - 2.3 mg/dL 05/08/2025 10:08 AM CDT DTL Blood (Blood, Venous) 05/08/2025 9:11 AM CDT 05/08/2025 9:51 AM CDT Yanci Domingo APRN, Jovon.N.P., M.S.N. LAB BLOOD ADD -ON Final Result [facility] [address] [place] [address], [facility] [address] [address] * Creatinine with Estimated GFR (05/08/2025 9:11 AM CDT) Creatinine 1.23 0.74 - 1.35 mg/dL 05/08/2025 10:08 AM CDT DTL Estimated GFR (eGFR) 60 >=60 mL/min/BSA 05/08/2025 10:08 AM CDT DTL Comment: Estimated GFR calculated using the 2020 CKD_EPI creatinine equation. Blood (Blood, Venous) 05/08/2025 9:11 AM CDT 05/08/2025 9:51 AM CDT Yanci Domingo APRN, C.N.P., M.S.N. LAB BLOOD ADD -ON Final Result [address] [address], [facility] [address] [place] [address] * ECG 12 Lead (05/08/2025 8:45 AM CDT) Ventricular Rate ECG/Min 67 BPM MUSE KS Interval 246 ms MUSE QRSD Interval 160 ms MUSE QT Interval 448 ms MUSE QTC Interval 473 ms MUSE P [place] 61 degrees MUSE R [place] -3 degrees MUSE T Wave [place] 126 degrees MUSE 05/08/2025 8:45 AM CDT 05/08/2025 9:16 AM CDT Impressions MUSE - 05/08/2025 8:54 AM CDT Sinus rhythm with 1st degree A-V block Left bundle branch block with secondary ST-T abnormalities When compared with ECG of 30-Jan-2025 08:52, KS interval has increased Premature atrial complexes are no longer present Reviewed by JERRY Cronin Narrative Procedure Note David Ma Jr., M.D. - 05/08/2025 IMPRESSION: Sinus rhythm with 1st degree A-V block Left bundle branch block with secondary ST-T abnormalities When compared with ECG of 30-Jan-2025 08:52, [place] interval has increased Premature atrial complexes are no longer present Reviewed by JERRY Cronin Jovon Lu APRN.N.P., M.S.N. ECG ORDERABLE S Edited Result - Final Performing Organization Address City/[facility]/ZIP Co de Phone Number MUSE NA * (ABNORMAL) Basic Metabolic Panel (03/26/2024 11:52 AM CDT) Pathologist [facility] Potassium, S 4.4 3.6 - 5.2 mmol/L 03/26/2024 12:55 PM CDT DTL Sodium, S 140 135 - 145 mmol/L 03/26/2024 12:55 PM CDT DTL Chloride, S 106 98 - 107 mmol/L 03/26/2024 12:55 PM CDT DTL Bicarbonate, S 28 22 - 29 mmol/L 03/26/2024 12:55 PM CDT DTL Anion Gap 6(L) 7 - 15 03/26/2024 12:55 PM CDT DTL BUN (Blood Urea Nitrogen), S 22 8 - 24 mg/dL 03/26/2024 12:55 PM CDT DTL Creatinine 1.13 0.74 - 1.35 mg/dL 03/26/2024 12:55 PM CDT DTL Estimated GFR (eGFR) 67 >=60 mL/min/BSA 03/26/2024 12:55 PM CDT DTL Comment: Estimated GFR calculated using the 2020 CKD_EPI creatinine equation. Calcium, Total, S 9.1 8.8 - 10.2 mg/dL 03/26/2024 12:55 PM CDT DTL Glucose, S 102 70 - 140 mg/dL 03/26/2024 12:55 PM CDT DTL Blood (Blood, Venous) 03/26/2024 11:52 AM CDT 03/26/2024 12:37 PM CDT us Jovon Lu APRN.N.P., M.S.N. LAB BLOOD ADD -ON Final Result [facility] [address] [place] [address], [place] DTL [facility] [address] [place] [address] from Last 3 Months or Most Recently Relevant to Health Maintenance Insurance [employer] Advance Directives For more information, please contact: [phone] * Full Code (Latest Code Status on File) Date Activated Date Inactivated Comments 12/02/2022 10:03 AM 12/05/2022 4:04 PM Question Answer Comments Full Code: Discussed * DNR/DNI Date Activated Date Inactivated Comments 12/01/2022 10:08 AM 12/02/2022 10:03 AM * Full Code Date Activated Date Inactivated Comments 11/17/2021 4:31 PM 11/17/2021 9:58 PM Question Answer Comments Full Code: Not Discussed Due to: Patient not available Care Teams Pharmaceutical Sales Representative Relationship Specialty Start Date End Date Elsewhere, Pcp PCP - General Internal Medicine 11/15/21
--- OUTSIDE RECORDS SUMMARY | 2025-05-30 17:15 | XMS_ITS | Data Portability ---
Author Organization [place] [facility] [place] Address [address] [place] [address] Assessment Encounter Date Assessment Date Assessment LastModified by Organization Details LastModified Time 05/01/2025 05/01/2025 Time spent reviewing the patient s medical record, diagnostic studies, performing a focused history and physical exam, educating the patient regarding the natural history of disease as it pertains to the patient, discussing treatment options and alternatives, medical decision making, and chartin-39 minutes. [email or web address] Not available 05/01/2025 14:19:41 Plan of Treatment [...] By Organization Details Last Modified Time 05/01/2025 [id number] PROCEDURE RECOMMENDATIONS 1. Ultrasound guided foam sclerotherapy of the residual incompetent tributaries and varicosities greater than 4.0mm of the left leg (43228, 91449) 2 sessions 2. Ultrasound guided foam sclerotherapy of the residual incompetent tributaries and varicosities greater than 4.0mm of the right leg (40399, 37878) 2 sessions Not available 05/04/2025 12:49:53 Reason for Referral [...] - [facility] 03/20/2025 13:29:54 03/19/20 25 PVC - Varithena: Multiple Veins w/ UGFS completed Teresa Rice MD [address], [place], [address], [place] [facility] 03/19/2025 15:41:15 02/06/20 25 PVC - EVRFA: Two Veins completed Nereyda Rhoades MD [address], [place], [address], [place] [facility] 02/05/2025 14:01:32 02/06/20 25 procedure on vein completed BREANNE GUTIERREZ [address], [place], [address], [place] [facility] 05/01/2025 14:14:41 12/31/19 25 PVC - EVRFA: Two Veins completed Delores Montez [place] - [facility] 12/31/2024 14:25:17 12/30/19 25 PVC - EVRFA: [facility] 12/30/2024 13:08:45 Colonoscopy completed Teresa Rice MD [address], [place], [address], [place] [facility] 09/19/2024 13:47:28 Hernia Repair completed Teresa Rice MD [address], [place], [address], [place] [facility] 09/19/2024 13:47:28 Vasectomy completed Teresa Rice MD [address], [place], [address], [place] [facility] 09/19/2024 [...] Updated DateTime 05/01/2025 180.34 cm 33.5 kg/m2 466029.17 g BREANNE GUTIERREZ [address] [place], [address], [place] - [facility] 05/01/2025 14:12:50 Social History Question Answer Notes LastModified by Organizat ion Details LastModified Time Tobacco Smoking Status Former Smoker Teresa Rice MD [address] [place], [address], [facility] - [facility] 09/19/2024 13:47:41 [...] SNOMED-CT Code Diagnosis ICD10 Code Diagnosis Note [id number] MD Dyllan Wilson [address] [place] [address] 09/19/2024 13:36:08 09/24/2024 04:05:35 Pain co-occurrent and due to varicose veins of bilateral legs [id number] I83.813 DUPLEX ULTRASOUND FINDINGS: Spectral doppler analysis shows abnormal reflux (>500msec) in the left great saphenous vein, right GSV, SSV, ASV, PAGSV and multiple bilateral tributary veins. The deep veins are patent with normal compressib ility and augmentati on. Bilateral deep venous insufficie ncy is present in the common femoral vein. There is adequate venous capacity of the deep system. There is no significan t tortuosity or aneurysm of the refluxing saphenous veins which would impede catheter advancemen t. [id number] MD Dyllan Wilson [address] [place] [address] 09/19/2024 13:36:15 09/23/2024 13:18:59 Pain co-occurrent and due to varicose veins of bilateral legs [id number] I83.813 DUPLEX ULTRASOUND FINDINGS: Spectral doppler analysis shows abnormal reflux (>500msec) in the left great saphenous vein, right GSV, SSV, ASV, PAGSV and multiple bilateral tributary veins. The deep veins are patent with normal compressib ility and augmentati on. Bilateral deep venous insufficie ncy is present in the common femoral vein. There is adequate venous capacity of the deep system. There is no significan t tortuosity or aneurysm of the refluxing saphenous veins which would impede catheter advancemen t. 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 CEAP 4b VCSS 162)Right lower extremity superficia l chronic venous insufficie ncy of the GSV, SSV, ASV, PAGSV and tributary veins with pain and inflammati on affecting activities of daily living. CEAP 4c VCSS 193) Normal deep venous system without DVT4) The patient has progressio n of symptoms despite conservati ve measures including: OTC GCS daily wear, avoiding long periods of sitting/st anding, regular daily exercise including moderate walking, weight control, OTC analgesics and leg elevation. [id number] OTIS Arita [address] [place] [address] 11/05/2024 09:51:06 11/12/2024 10:37:32 Pain co-occurrent and due to varicose veins of bilateral legs [id number] I83.813 DUPLEX ULTRASOUND FINDINGS: Spectral doppler analysis shows abnormal reflux (>500msec) in the left GSV, left distal SSV, right GSV, right ASV, right PAGSV, right SSV, and multiple bilateral tributary veins. The deep veins are patent with normal compressib ility and augmentati on. Bilateral CFV deep reflux seen. There is no significan t tortuosity or aneurysm of the refluxing saphenous veins which would impede catheter advancemen t. ASSESSMENT :1)Left lower extremity superficia l chronic venous insufficie ncy of the GSV, distal SSV, and tributary veins with pain and inflammati on affecting activities of daily living. CEAP 4, VCSS 192)Right lower extremity superficia l chronic venous insufficie ncy of the GSV, ASV, PAGSV, SSV, and tributary veins with pain and inflammati on affecting activities of daily living. CEAP 4, VCSS 193) Normal deep venous system without DVT4) The patient has progressio n of symptoms despite conservati ve measures including: use of GCS class II or higher for more than 3 months, avoiding long periods of sitting/st anding, regular daily exercise including moderate walking, weight control, OTC analgesics and leg elevation. PLAN:1) Proceed with the treatment plan detailed below. [id number] OTIS Arita [address] [place] [address] 11/05/2024 09:51:15 11/13/2024 04:06:03 Pain co-occurrent and due to varicose veins of bilateral legs [id number] I83.813 DUPLEX ULTRASOUND FINDINGS: Spectral doppler analysis shows abnormal reflux (>500msec) in the left GSV, left distal SSV, right GSV, right ASV, right PAGSV, right SSV, and multiple bilateral tributary veins. The deep veins are patent with normal compressib ility and augmentati on. Bilateral CFV deep reflux seen. There is no significan t tortuosity or aneurysm of the refluxing saphenous veins which would impede catheter advancemen t. [id number] MD Dyllan Wilson [address] [place] [address] 12/30/2024 12:36:29 01/01/2025 11:29:18 Pain co-occurrent and due to varicose veins of left leg [id number] I83.812 [id number] MD Dyllan Wilson [address] [place] [address] 12/31/2024 13:34:19 01/01/2025 11:30:07 Pain co-occurrent and due to varicose veins of right leg [id number] I83.811 [id number] MD Fan Bensonll e [address] [place] [address] 02/05/2025 13:02:33 02/05/2025 14:26:46 Varicose veins of lower extremity [id number] I83.811 [id number] Teresa Rice MD Dyllan e [address] [place] [address] 03/19/2025 13:11:49 03/19/2025 16:11:37 Pain co-occurrent and due to varicose veins of left leg [id number] I83.812 [id number] Teresa Rice MD Dyllan e [address] [place] [address] 03/20/2025 13:10:42 03/20/2025 16:13:41 Pain co-occurrent and due to varicose veins of right leg [id number] I83.811 [id number] BREANNE GUTIERREZ [address] [place] [address] 05/01/2025 13:47:28 05/06/2025 13:43:43 Pain co-occurrent and due to varicose veins of bilateral legs [id number] I83.813 DUPLEX ULTRASOUND FINDINGS: Spectral doppler analysis [...] adequate venous capacity of the deep system. [id number] BREANNE GTUIERREZ [address] [place] [address] 05/01/2025 13:47:41 05/06/2025 13:43:50 Pain co-occurrent and due to varicose veins of bilateral legs [id number] I83.813 DUPLEX ULTRASOUND FINDINGS: Spectral doppler analysis [...] Proceed with the treatment plan detailed below. [id number] MD Dyllan Wilson e [address] [place] [address] 05/19/2025 13:43:03 05/19/2025 15:27:43 Pain co-occurrent and due to varicose veins of left leg [id number] I83.812 [id number] MD Dyllan Wilson [address] [place] [address] 05/20/2025 12:39:09 05/20/2025 14:20:10 Pain co-occurrent and due to varicose veins of right leg [id number] I83.811 Health Concerns Section Related Observation LastModified by Organization Detai ls LastModified Time None Recorded Concern Status LastModified by Organization Details LastModified Time None Recorded Advance Directives Directive None Recorded Payers Insurance Date Sequence Insurance Name Policy Number Policy Phan Covered Member ID Phan Member ID Guarantor Name 05/30/2025 1 [employer] - DOS ON OR AFTER 19 (MEDICARE REPLACEMENT/ ADVANTAGE - HMO) [id number] 1 Audie Cueva [id number] Audie G Anay 11/28/2024 1 [employer] (MEDICARE REPLACEMENT/ ADVANTAGE - PPO) Audie Cueva [id number] Audie Cueva Notes Date Note Type Note [...] 6 wks Rx provided at consultation-OTC analgesics:Tylenol prn Teresa Rice MD [address], [place], [address], [place] [facility] 05/05/2025 08:58:45
--- OUTSIDE RECORDS SUMMARY | 2025-05-30 17:15 | XMS_ITS | Continuity of Care Document ---
Author Organization [facility] [place] Address [address] [place] [address] Assessment No assessment recorded. Plan of Treatment [...] PVC - Ultrasound Guided Sclerotherapy completed [facility] 05/20/2025 12:58:28 05/19/20 25 PVC - Ultrasound Guided Sclerotherapy completed [facility] 05/19/2025 14:03:56 03/20/20 25 PVC - Varithena: Multiple Veins w/ UGFS completed [facility] 03/20/2025 13:29:54 03/19/20 25 PVC - Varithena: Multiple Veins w/ UGFS completed Teresa Rice MD [address] [place], [address], [facility] 03/19/2025 15:41:15 02/06/20 25 PVC - EVRFA: Two Veins completed Nereyda Rhoades MD [address] [place], [address], [place] - [facility] 02/05/2025 14:01:32 02/06/20 25 procedure on vein completed BREANNE GUTIERREZ [address], [place], [address], [place] - [facility] 05/01/2025 14:14:41 12/31/19 25 PVC - EVRFA: Two Veins completed Delores [place] - [facility] 12/31/2024 14:25:17 12/30/19 25 PVC - EVRFA: Single Vein completed [facility]ores [facility] - [facility] 12/30/2024 13:08:45 Colonoscopy completed Teresa Rice MD [address], [place], [address], [place] - [facility] 09/19/2024 13:47:28 Hernia Repair completed Teresa Rice MD [address], [place], [address], [place] - [facility] 09/19/2024 13:47:28 Vasectomy completed Teresa Rice MD [address], [place], [address], [place] - [facility] 09/19/2024 13:47:28 [...] Smoker Teresa Rice MD [address] [place], [address], [facility] - [facility] 09/19/2024 13:47:41 [...] SNOMED-CT Code Diagnosis ICD10 Code Diagnosis Note [id number] BREANNE GUTIERREZ e [address] [place] [address] 05/01/2025 13:47:28 05/06/2025 13:43:43 Pain co-occurrent and due to varicose veins of bilateral legs [id number] I83.813 DUPLEX ULTRASOUND FINDINGS: Spectral doppler analysis [...] adequate venous capacity of the deep system. [id number] BREANNE GUTIERREZvichristy e [address] [place] [address] 05/01/2025 13:47:41 05/06/2025 13:43:50 Pain co-occurrent and due to varicose veins of bilateral legs [id number] I83.813 DUPLEX ULTRASOUND FINDINGS: Spectral doppler analysis [...] Proceed with the treatment plan detailed below. [id number] MD Dyllan Wilson e [address] [place], [place] [address] 05/19/2025 13:43:03 05/19/2025 15:27:43 Pain co-occurrent and due to varicose veins of left leg [id number] I83.812 Health Concerns Section Related Observation LastModified by Organization Jesusita ls LastModified Time None Recorded Concern Status LastModified by Organization Details LastModified Time None Recorded Payers Encounter Date Sequence Insurance Name Policy Number Policy Phan Covered Member ID Phan Member ID Guarantor Name 05/19/2025 1 [employer] - DOS ON OR AFTER 19 (MEDICARE REPLACEMENT/ ADVANTAGE - HMO) [id number] 1 Audie Cueva [id number] Audie Cueva
[2025-05-30 17:33] VITALS: BP 123/70; PULSE 67; RESP 16; TEMP 36.3; O2SAT 96; BMI 33.7
[2025-05-30 18:23] LABS: PCR FLU A Negative PCR FLU A (Negative); PCR FLU B Negative PCR FLU B (Negative); PCR RSV Negative PCR RSV (Negative); SARS PCR* Negative SARS-CoV-2 (Negative)
--- NOTE | 2025-05-30 18:32 | ED.GENADULT ---
HPI - General Adult General Date Seen: 05/30/25 Chief complaint: Shortness of Breath/Dyspnea Stated complaint: SOB Time Seen by Provider: 05/30/25 18:32 History of Present Illness HPI narrative: 79-year-old gentleman presenting to the ER today for shortness of breath, chest tightness, productive cough. He has a past medical history of hyperlipidemia, hypertension, aortic valve replacement, paroxysmal AFib and is on chronic warfarin. INR was 4.0 yesterday. 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 He has been healthy and well lately. No known sick exposures. He has not had any recent illness. He woke up from sleep at about 3:00 a.m. this morning with a wet cough that is productive of clear phlegm. He has been having production of white phlegm throughout the day since then. No bloody or green phlegm. All clear. He has also had a cough. He has felt some tightness in his chest and a little bit of shortness of breath. No pleuritic chest pain. No palpitations. No fever chills. No new swelling in his ankles. He has not have any history of aspiration. He was not vomiting or otherwise feeling reflux when he the cough started at 3. He was fine yesterday and yesterday evening before he went to bed. Related Data Home Medications ?Medication ?Instructions ?Recorded ?Confirmed dofetilide 125 mcg capsule 125 mcg PO DAILY 03/17/25 05/30/25 multivitamin 1 tab PO QDAY 03/17/25 05/30/25 omega 1-wmo-jhi-fish oil 300 1 cap PO QDAY 03/17/25 05/30/25 mg-1,000 mg capsule (Fish Oil) Previous Rx's ?Medication ?Instructions ?Recorded amlodipine 10 mg tablet 10 mg PO QDAY #90 tabs 11/18/24 furosemide 20 mg tablet 20 mg PO QAM #90 tabs 03/17/25 losartan 100 mg tablet 100 mg PO DAILY #90 tabs 03/17/25 metoprolol succinate 100 mg 100 mg PO BID #180 tabs 03/17/25 tablet,extended release 24 hr warfarin 5 mg tablet 5 mg PO QDAY #100 tabs 03/17/25 rosuvastatin 10 mg tablet 10 mg PO QDAY #90 tabs 03/18/25 Allergies Allergy/AdvReac Type Severity Reaction Status Date / Time No Known Drug Allergies Allergy Verified 05/30/25 17:30 [facility] Medical History (Updated 05/30/25 @ 21:03 by Edward Moctezuma MD) Hyperlipidemia ?E78.5 - Hyperlipidemia, unspecified (ICD-10) Lightheadedness ?R42 - Dizziness and giddiness (ICD-10) Viral syndrome ?B34.9 - Viral infection, unspecified (ICD-10) Surgical History History of cardiac radiofrequency ablation ?Z98.890 - Other specified postprocedural states (ICD-10) Status post right inguinal hernia repair ?Z98.890 - Other specified postprocedural states (ICD-10) ?Z87.19 - Personal history of other diseases of the digestive system (ICD-10) Status post aortic valve replacement ?Z95.2 - Presence of prosthetic heart valve (ICD-10) Social History What is your current living situation?: I presently have a place to live Problems where you live: no known problems In the past 12 months, utilities in danger of being shut off: no In past 12 months, lack of transportation kept you from medical appts, meetings, work, or getting things needed for daily living: no In the past 12 mos, have been you worried that your food would run out before you had money to buy more?: never true In the past 12 mos, the food you bought just didn't last and you didn't have money to buy more?: never true Smoking Status: Never smoker How often do you have a drink containing alcohol: never AUDIT-C Alcohol total score: 0 Non-prescribed substance use: denies use How often does anyone, including family, friends and others, physically hurt you: never How often does anyone, including family, friends and others, insult or talk down to you: never How often does anyone, including family, friends and others, threaten you with harm: never How often does anyone, including family, friends and others, scream or curse at you: never Exam Narrative: Exam Narrative: Constitutional: Appears well-developed and well-nourished. Alert. Conversant. Occasional wet sounding cough. Not productive of any sputum. Non toxic. HENT: Head: Atraumatic. Nose: Nose normal. Mouth/Throat: Oral mucosa is clear and moist. no trismus. Pharynx normal. Tonsils symmetric. No tonsillar enlargement, erythema, or exudate. Eyes: Conjunctivae normal. EOM normal. Pupils equal, round, and reactive to light. No scleral icterus. Neck: Normal range of motion. Neck supple. No tracheal deviation present. No JVD Cardiovascular: Normal rate, regular rhythm. No gallop. No friction rub. Clicking systolic murmur heard. Symmetric radial artery pulses Pulmonary/Chest: Effort normal. No stridor. No respiratory distress. No wheezes. Right-sided lower> upper rales and rhonchi . Very faint left rhonchi but much more prominent on the right. No tenderness. Abdominal: Soft No distension. No mass. No tenderness. No rebound. No guarding. Musculoskeletal: RUE: Normal range of motion. No tenderness. No deformity LUE: Normal range of motion. No tenderness. No deformity RLE: Normal range of motion. No edema. No tenderness. No deformity LLE: Normal range of motion. No edema. No tenderness. No deformity Neurological: Alert and oriented to person, place, and time. Normal strength. CN II-VII intact. No sensory deficit. GCS eye subscore is 4. GCS verbal subscore is 5. GCS motor subscore is 6. Normal coordination Skin: Skin is warm and dry. No rash noted. No pallor. Normal capillary refill. Psychiatric: Normal mood. Normal affect. Const: Vital Signs, click to edit/add: Vital Signs - 24 hr 05/30/25 17:33 05/30/25 19:55 Temperature 97.4 F L Pulse Rate [Pulse Oximeter] 67 66 Respiratory Rate 16 16 Blood Pressure [Ri t Upper Arm] 123/70 140/69 H Pulse Oximetry 96 95 Oxygen Delivery Me thod Room Air Room Air Course Vital Signs Vital signs: Initial Vital Signs Temperature 97.4 F L 05/30/25 17:33 Temperature Source Temporal Artery Scan 05/30/25 17:33 Pulse Rate 67 05/30/25 17:33 Pulse Rhythm Regular 05/30/25 17:33 Respiratory Rate 16 05/30/25 17:33 Blood Pressure 123/70 05/30/25 17:33 Blood Pressure Mean 87 05/30/25 17:33 Blood Pressure Position Sitting 05/30/25 17:33 Pulse Oximetry 96 05/30/25 17:33 Oxygen Delivery Method Room Air 05/30/25 17:33 Vital Signs Temperature 97.4 F L 05/30/25 17:33 Pulse Rate 67 05/30/25 17:33 Respiratory Rate 16 05/30/25 17:33 Blood Pressure 123/70 05/30/25 17:33 Pulse Oximetry 96 05/30/25 17:33 Oxygen Delivery Method Room Air 05/30/25 17:33 Temperature 97.4 F L 05/30/25 17:33 Pulse Rate 66 05/30/25 19:55 Respiratory Rate 16 05/30/25 19:55 Blood Pressure 140/69 H 05/30/25 19:55 Pulse Oximetry 95 05/30/25 19:55 Oxygen Delivery Method Room Air 05/30/25 19:55 Medical Decision Making MDM Narrative Medical decision making narrative: Very pleasant 79-year-old gentleman with a complex past cardiac history including aortic valve replacement and coronary disease. He is a former smoker but does not have history of COPD. He presents to the ER today with productive cough and a little bit of chest tightness with symptoms beginning at about 3:00 a.m. this morning. He is not febrile. Clinically he is well appearing. Oxygen saturation is normal. Vital signs are normal. Differential for his cough includes pneumonia, COVID/influenza/RSV, bronchospasm or asthma/COPD. Also consider CHF, viral infection, among others. Clinical exam basilar rales and rhonchi suspicious for pneumonia. Chest x-ray confirms an infiltrate in the right lung field. This is suspicious for community-acquired pneumonia. Since started while he was sleeping, consider possible aspiration. However he was not vomiting when he began. Laboratory workup is reassuring. No explanation for his cough other than the pneumonia. Although the patient is medically complex, which gives consideration for admission, he is overall doing quite well. I think it is reasonable to try course of outpatient antibiotics. Will start on doxycycline for routine outpatient community-acquired pneumonia but add Azithromycin as per guidelines given his medical complexity in the potential risk for aspiration. Prescriptions provided through [facility]. Precautions for return to the ER reviewed with the patient and his daughter. They are in agreement. Lab Data Labs: Lab Results 05/30/25 05/30/25 Range/Units 17:36 19:02 WBC 6.58 (4.50-11.00) K/uL RBC 4.43 (4.30-5.90) m/uL Hgb 12.3 L (13.5-17.5) gm/dL Hct 38.0 (37.0-53.0) % MCV 86 (80-100) fL MCH 28 (26-34) pg MCHC 32 (32-36) gm/dL RDW Coeff of George 15.1 (11.5-15.5) % Plt Count 227 (140-440) K/uL Neut % (Auto) 61.5 (42.0-72.0) % Lymph % (Auto) 19.9 L (20-44) % [place] % (Auto) 13.8 H (0.0-11.0) % Eos % (Auto) 4.0 (0.0-7.0) % Baso % (Auto) 0.8 (0.0-3.0) % Neut # (Auto) 4.05 (1.7-7.0) K/uL Lymph # (Auto) 1.30 (0.90-2.90) K/uL [place] # (Auto) 0.90 (0.00-0.90) K/UL Eos # (Auto) 0.26 (0.00-0.50) K/uL Baso # (Auto) 0.05 (0.00-0.30) K/uL Abs Immat Gran (auto) 0.00 (0.00-0.30) K/uL Imm/Tot Granulo (auto) 0.0 % Sodium 137 (135-149) mmol/L Potassium 4.1 (3.6-5.1) mmol/L Chloride 104 (96-114) mmol/L Carbon Dioxide 26 (20-32) mmol/L Anion Gap 7 (7-15) mEq/L BUN 22 (7-30) mg/dL Creatinine 1.2 (0.5-1.5) mg/dL Estimated Creat Clear 53.16 Estimated GFR 62 ml/min Glucose 119 H (60-115) mg/dL Lactate 1.0 (0.5-1.9) mmol/L Calcium 9.1 (8.4-10.6) mg/dL Troponin I < 0.01 (0.01-0.04) ng/mL SARS-CoV-2 (PCR) Negative SARS-CoV-2 (Negative) Influenza Type A (PCR) Negative PCR FLU A (Negative) Influenza Type B (PCR) Negative PCR FLU B (Negative) RSV (PCR) Negative PCR RSV (Negative) Imaging Data Chest x-ray: Attestation: I have reviewed the pertinent imaging results. My impression: Subtle right lower lobe infiltrate Radiologist's impression: IMPRESSION: Right infrahilar patchy consolidation suggestive of atelectasis/scar, aspiration and/or pneumonia. ECG Data Attestation: I personally reviewed and interpreted this ECG as follows: Interpretation: Sinus rhythm with frequent PVCs Rate 66 AR interval 192 Left bundle-branch block No acute ST segment elevation or depression. ST changes consistent with left bundle. No ST elevation MO by Sgarbossa QTC [id number] Discharge Plan Discharge Clinical Impression: RLL pneumonia Patient Disposition: Home, Self-Care Condition: Stable Instructions: Community Acquired Pneumonia (DC) Additional Instructions: As we discussed, your chest x-ray shows a subtle smudge in your right lung suggestive for pneumonia. This would fit with the way your lung sound and with your productive cough. Fortunately her laboratory workup looks reassuring. We are going to start you on 2 different antibiotics to treat your pneumonia (doxycycline and Augmentin). Please take them both. Each antibiotic is twice a day for 7 days. If you have worsening cough, trouble breathing, chest pain, high fever, weakness, dizziness or falls, or any concerns, please return to the emergency department right away. Please recheck with your regular doctor within 7-14 days for recheck and repeat x-ray. Prescriptions: No Action dofetilide 125 mcg capsule 125 mcg PO DAILY omega 9-tep-ysa-fish oil [Fish Oil] 300-1,000 mg capsule 1 cap PO QDAY multivitamin Tablet 1 tab PO QDAY losartan 100 mg tablet 100 mg PO DAILY Qty: 90 3RF metoprolol succinate 100 mg tablet extended release 24 hr 100 mg PO BID Qty: 180 3RF warfarin 5 mg tablet 5 mg PO QDAY Qty: 100 3RF Protocol: Dose Management Condition: Monday Dose/Route: 5 mg Instruction: 1 x 5 mg tablet Condition: Monday Dose/Route: 2.5 mg Instruction: 0.5 x 5 mg tablets Condition: Monday Dose/Route: 5 mg Instruction: 1 x 5 mg tablet Condition: Monday Dose/Route: 2.5 mg Instruction: 0.5 x 5 mg tablets Condition: Dose/Route: 5 mg Instruction: 1 x 5 mg tablet Condition: Monday Dose/Route: 2.5 mg Instruction: 0.5 x 5 mg tablets Condition: Monday Dose/Route: 5 mg Instruction: 1 x 5 mg tablet Protocol Text: Adjustment Start Date: 05/29/25 INR Value: 4.0 INR Date: 05/29/25 Recheck Date: 06/05/25 furosemide 20 mg tablet 20 mg PO QAM Qty: 90 3RF amlodipine 10 mg tablet 10 mg PO QDAY Qty: 90 3RF rosuvastatin 10 mg tablet 10 mg PO QDAY Qty: 90 3RF Follow Up/Referrals: Kris Trevizo MD [Primary Care Provider, Family Practice] Stand Alone Forms: [facility] Info Instructions
--- NOTE | 2025-05-30 18:44 | CRLHL7_ITS ---
For Patients: As a result of the Century Cures Act, medical imaging exams and procedure reports are released immediately into your electronic medical record. You may view this report before your referring provider. If you have questions, please contact your health care provider. INDICATION: Chest pain. Cough. TECHNIQUE: Chest 2 views. COMPARISON: None. FINDINGS: Cardiovascular and mediastinum: Heart size is normal. Unremarkable mediastinum. Valve replacement. Lungs and pleural spaces: Right infrahilar patchy consolidation. No pleural effusion or pneumothorax. Bones and soft tissues: Intact sternotomy wires. Multilevel degenerative changes of the spine. IMPRESSION: Right infrahilar patchy consolidation suggestive of atelectasis/scar, aspiration and/or pneumonia. Recommend comparison with prior imaging, if available. Additionally, recommend radiographic follow-up in 6-8 weeks to document resolution/improvement and rule out underlying mass. Dictated by Hesham Timmons MD @ 05/30/2025 7:42:00 PM (Electronically Signed)
[2025-05-30 19:09] LABS: Lactate* 1.0 mmol/L (0.5-1.9)
[2025-05-30 19:16] LABS: Hematocrit 38.0 % (37.0-53.0); Hemoglobin* 12.3 gm/dL (13.5-17.5); Immature Granulocytes Abs Auto 0.00 K/uL (0.00-0.30); Immature Granulocytes Pct Auto 0.0 %; Mean Corpuscular HGB Conc 32 gm/dL (32-36); Mean Corpuscular Hemoglobin 28 pg (26-34); Mean Corpuscular Volume 86 fL (80-100); RDW Coefficient of Variation % 15.1 % (11.5-15.5); Red Blood Count 4.43 m/uL (4.30-5.90); White Blood Count* 6.58 K/uL (4.50-11.00)
[2025-05-30 19:26] LABS: Chloride* 104 mmol/L (96-114); Lymphocytes Absolute Auto 1.30 K/uL (0.90-2.90); Potassium* 4.1 mmol/L (3.6-5.1); Slide Review Reflex No; Sodium* 137 mmol/L (135-149)
[2025-05-30 19:29] LABS: Anion Gap 7 mEq/L (7-15); Blood Urea Nitrogen* 22 mg/dL (7-30); Calcium* 9.1 mg/dL (8.4-10.6); Carbon Dioxide* 26 mmol/L (20-32); Creatinine* 1.2 mg/dL (0.5-1.5); Est. Creatinine Clearance* 53.16; Estimated Glomerular Filt Rate 62 ml/min; Glucose* 119 mg/dL (60-115)
[2025-05-30 19:55] VITALS: BP 140/69; PULSE 66; RESP 16; O2SAT 95
== END 2025-05-30 21:24 | disposition home or self-care (01) ==
PROVIDERS: Emergency Provider Emergency Medicine; PCP Family Medicine
DX: J18.9 Pneumonia, unspecified organism (principal); R06.02 Shortness of breath; R07.89 Other chest pain; R05.9 Cough, unspecified; E78.5 Hyperlipidemia, unspecified; I10 Essential (primary) hypertension; I48.0 Paroxysmal atrial fibrillation; I44.7 Left bundle-branch block, unspecified; Z79.01 Long term (current) use of anticoagulants
CPT/HCPCS: 36415; 71046; 80048; 83605; 84484; 85025; 87631; 93005; 99283; 99284; 99285

== ENCOUNTER 2025-06-02 12:14 | Outpatient (CLI) | payer MEDICARE, SELFPAY | END 2025-06-02 12:15 | disposition home or self-care (01) | LOC: NFLDREF 06-05 03:11 | PROVIDERS: PCP Family Medicine; Referring Provider Family Medicine; Visit Provider Family Medicine | DX: R04.2 Hemoptysis (principal); Z79.01 Long term (current) use of anticoagulants | CPT/HCPCS: 85610 ==

== ENCOUNTER 2025-07-21 14:16 | Outpatient (CLI) | payer MEDICARE, SELFPAY | END 2025-07-21 14:17 | disposition home or self-care (01) | LOC: LKVREF 14:18 | PROVIDERS: PCP Family Medicine; Visit Provider Family Medicine | DX: E78.5 Hyperlipidemia, unspecified (principal) | CPT/HCPCS: 80061 ==